=== PATIENT | female | born 1955 | race Caucasian/White ===

== ENCOUNTER 2018-05-24 12:08 | Outpatient (CLI) | payer OTHER | END 2018-05-24 12:09 | disposition home or self-care (01) | LOC: BICMAMMO 12:08 | PROVIDERS: ATTEND Obstetrics & Gynecology | DX: Z12.31 Encounter for screening mammogram for malignant neoplasm of breast (principal) | CPT/HCPCS: 77063; 77067 ==

== ENCOUNTER 2018-05-31 08:55 | Outpatient (CLI) | payer OTHER | END 2018-05-31 08:56 | disposition home or self-care (01) | LOC: BICMAMMO 08:55 | PROVIDERS: ATTEND Obstetrics & Gynecology | DX: R92.2 Inconclusive mammogram (principal) | CPT/HCPCS: G0279 ==

== ENCOUNTER 2020-08-16 10:26 | Outpatient (CLI) | payer MEDICARE ==
--- NOTE | 2020-08-16 11:03 | MMO ---
Left Breast MAMMO [facility] LT[facility]. CLINICAL HISTORY: Patient is 64 years old and is seen for diagnostic exam and lump or thickening in the left breast. The patient has no family history of breast cancer. The patient has no personal history of cancer. VIEWS: The views performed were: left craniocaudal with tomosynthesis; left mediolateral oblique with tomosynthesis; and left mediolateral with tomosynthesis. FILMS COMPARED: The present examination has been compared to prior imaging studies performed at [facility] on 05/18/2019 and 06/12/2020, and at [facility] on 05/31/2018 and 08/16/2020. This study has been interpreted with the assistance of computer-aided detection. MAMMOGRAM FINDINGS: There are scattered fibroglandular densities. There is a round mass measuring 11 millimeters with circumscribed margins seen in the sub-areolar region of the left breast. Palpable finding cyst on ultasound There are no suspicious masses, suspicious calcifications, or new areas of architectural distortion. IMPRESSION: THERE IS NO MAMMOGRAPHIC EVIDENCE OF MALIGNANCY. A ROUTINE FOLLOW-UP MAMMOGRAM IN 1 YEAR IS RECOMMENDED. THE RESULTS OF THIS EXAM WERE SENT TO THE PATIENT. ACR BI-RADS Category 2 - Benign finding MAMMOGRAPHY NOTE: 1. A negative mammogram report should not delay a biopsy if a dominant of clinically suspicious mass is present. 2. Approximately 10% to 15% of breast cancers are not detected by mammography. 3. Adenosis and dense breasts may obscure an underlying neoplasm. Reported by: LILLIANA ROMERO MD Electonically Signed: [id number]
--- NOTE | 2020-08-16 11:28 | ULT ---
LEFT BREAST ULTRASOUND: Date: 08/16/2020 HISTORY: Patient presents with a palpable finding in the 3 o'clock retroareolar region. FINDINGS: There is a 0.7 x 1.1 x 1.1 cm diameter circumscribed benign cyst in the retroareolar region of the le ft breast at 3 o'clock, corresponding to the palpable abnormality. IMPRESSION: BI-RADS Category 2 - Benign findings. Benign left breast cyst at 3 o'clock corresponding to the mammographic and palpable finding. Continued annual follow-up screening mammograms. The next bilateral screening study will be due in Au 2020.
== END 2020-08-16 10:27 | disposition home or self-care (01) ==
LOC: BICMAMMO 10:26
PROVIDERS: ATTEND Obstetrics & Gynecology
DX: N60.02 Solitary cyst of left breast (principal)
CPT/HCPCS: 76642; 77065; G0279

== ENCOUNTER 2022-02-19 09:33 | Outpatient (CLI) | payer MEDICARE ==
[2022-02-19 18:03] LABS: SARS-CoV-2 PCR by NAA Not Detected (NotDetected)
== END 2022-02-19 09:34 | disposition home or self-care (01) ==
LOC: LABBT 09:33
PROVIDERS: ATTEND Neurological Surgery
DX: M43.16 Spondylolisthesis, lumbar region (principal); Z20.822 Contact with and (suspected) exposure to COVID-19
CPT/HCPCS: U0003; U0005

== ENCOUNTER 2022-03-17 09:12 | Outpatient (CLI) | payer MEDICARE ==
[2022-03-17 19:52] LABS: SARS-CoV-2 PCR by NAA Not Detected (NotDetected)
== END 2022-03-17 09:13 | disposition home or self-care (01) ==
LOC: LABBT 09:12
PROVIDERS: ATTEND Ophthalmology Retina Specialist
DX: Z20.822 Contact with and (suspected) exposure to COVID-19 (principal)
CPT/HCPCS: U0003; U0005

== ENCOUNTER 2022-03-20 06:03 | Day surgery (SDC) | payer MEDICARE ==
[~2022-03-20 06:03] MED LIST: EPINEPHrine 0.3 MG in Ophthalmic Irrigation Solution 500 ML IRR SCH
[2022-03-20] MEDS ORDERED: Cyclopentolate 1% Opth Drop 2 ML BOT ONE (06:14)
[2022-03-20] MEDS ORDERED: Phenylephrine 2.5% Ophth Soln 5 ML BOT ONE (06:14)
[2022-03-20] MEDS ORDERED: Propofol 1,000 MG/100 ML VIAL IV ONE (06:22)
[2022-03-20] MEDS ORDERED: PROPOFOL 20 ML ONE (06:24)
[2022-03-20] MEDS ORDERED: Midazolam HCl 2 mg/2 ml Vial ONE (06:57)
[2022-03-20] MEDS ORDERED: fentaNYL Citrate/PF 100 MCG/2 ML SYRINGE ONE (06:59)
[2022-03-20] MEDS ORDERED: Lidocaine 1% PF 5 ML VIAL ONE ×2 (07:07)
[2022-03-20] MEDS ORDERED: Bupivacaine 0.75% 10 ML VIAL ONE (07:07)
[2022-03-20] MEDS ORDERED: Maxitrol 0.1% Opth Oint 3.5 GM TUBE ONE (07:07)
[2022-03-20] MEDS ORDERED: Lidocaine 4% PF 5 ML AMP ONE (07:07)
[2022-03-20] MEDS ORDERED: CEFAZOLIN 1 GM VIAL ONE (07:07)
[2022-03-20] MEDS ORDERED: PROPOFOL 200 MG/20 ML VIAL ONE (07:07)
[2022-03-20] MEDS ORDERED: Triamcinolone 40 MG/ML VIAL ONE (07:07)
== END 2022-03-20 08:10 | disposition home or self-care (01) ==
LOC: SDC 06:03
PROVIDERS: ATTEND Ophthalmology Retina Specialist
PROC: 08T53ZZ Resection of Left Vitreous, Percutaneous Approach (ICD-10-PCS; principal; 2022-03-20)
PROC: 08NF3ZZ Release Left Retina, Percutaneous Approach (ICD-10-PCS; 2022-03-20)
DX: H43.312 Vitreous membranes and strands, left eye (principal); K21.9 Gastro-esophageal reflux disease without esophagitis; Z79.899 Other long term (current) drug therapy; Z98.41 Cataract extraction status, right eye; Z98.42 Cataract extraction status, left eye; Z96.1 Presence of intraocular lens
CPT/HCPCS: J0171; J0690; J2250; J2704; J3301; J3490

== ENCOUNTER 2022-05-02 12:53 | Outpatient (CLI) | payer MEDICARE | END 2022-05-02 12:54 | disposition home or self-care (01) | LOC: BICRAD 12:53 | PROVIDERS: ATTEND Specialist | DX: M54.16 Radiculopathy, lumbar region (principal); M41.9 Scoliosis, unspecified; Z98.890 Other specified postprocedural states | CPT/HCPCS: 72110 ==

== ENCOUNTER 2022-12-04 05:58 | Day surgery (SDC) | payer MEDICARE ==
[2022-12-03 15:53] VITALS: BMI 29.1
[2022-12-04] MEDS ORDERED: Phenylephrine 2.5% Ophth Soln 5 ML BOT ONE (06:17)
[2022-12-04] MEDS ORDERED: Cyclopentolate 1% Opth Drop 2 ML BOT ONE (06:17)
[2022-12-04] MEDS ORDERED: Midazolam HCl 2 mg/2 ml Vial ONE (06:46)
[2022-12-04] MEDS ORDERED: Fentanyl 100 MCG/2 ML VIAL ONE (06:46)
[2022-12-04] MEDS ORDERED: PROPOFOL 200 MG/20 ML VIAL ONE (07:20)
[2022-12-04] MEDS ORDERED: Lidocaine 1% PF 5 ML VIAL ONE (07:20)
[2022-12-04] MEDS ORDERED: Bupivacaine 0.75% 10 ML VIAL ONE (07:20)
[2022-12-04] MEDS ORDERED: CEFAZOLIN 1 GM VIAL ONE (07:20)
[2022-12-04] MEDS ORDERED: Maxitrol 0.1% Opth Oint 3.5 GM TUBE ONE (07:20)
[2022-12-04] MEDS ORDERED: Triamcinolone 40 MG/ML VIAL ONE (07:20)
[2022-12-04] MEDS ORDERED: Lidocaine 4% PF 5 ML AMP ONE (07:20)
== END 2022-12-04 08:29 | disposition home or self-care (01) ==
LOC: SDC 05:58
PROVIDERS: ATTEND Ophthalmology Retina Specialist
PROC: 08T43ZZ Resection of Right Vitreous, Percutaneous Approach (ICD-10-PCS; principal; 2022-12-04)
DX: H43.311 Vitreous membranes and strands, right eye (principal); K21.9 Gastro-esophageal reflux disease without esophagitis; Z79.899 Other long term (current) drug therapy; Z98.41 Cataract extraction status, right eye; Z98.42 Cataract extraction status, left eye; Z96.1 Presence of intraocular lens
CPT/HCPCS: J0171; J0690; J2250; J2704; J3010; J3301; J3490

== ENCOUNTER 2023-01-21 15:04 | Outpatient (CLI) | payer MEDICARE | END 2023-01-21 15:05 | disposition home or self-care (01) | LOC: SCSMRI 15:04 | PROVIDERS: ATTEND Orthopaedic Surgery | DX: M75.101 Unspecified rotator cuff tear or rupture of right shoulder, not specified as traumatic (principal); Z98.890 Other specified postprocedural states ==

== ENCOUNTER 2023-02-27 10:31 | Outpatient (CLI) | payer MEDICARE ==
[2023-02-27 12:50] LABS: #Basophils 0.1 10x3/uL (0.0-0.2); #Eosinphils 0.3 10x3/uL (0.0-0.5); #Monocytes 0.5 10x3/uL (0.0-1.1); #Neutrophils 2.3 10x3/uL (1.5-8.4); %Basophils 0.9 % (0.0-2.0); %Eosinophils 5.8 % (0.0-6.0); %Lymphocytes 41.2 % (18.0-47.0); %Monocytes 8.6 % (0.0-10.0); %Neutrophils 43.3 % (40.0-75.0); Hemoglobin 14.6 g/dL (12.0-15.5); Mean Corpuscular HGB CONC 32.5 g/dL (32.0-36.0); Mean Corpuscular Hemoglobin 31.6 pg (27.0-33.0); Mean Corpuscular Volume 97.2 fl (81.6-98.3); Mean Platelet Volume 9.9 fl (7.4-10.4); Platelet Count 246 10x3/uL (150-450); RBC Distribution Width 13.2 % (11.5-14.5); Red Blood Cell (RBC) Count 4.62 10x6/uL (3.90-5.03); White Blood Cell (WBC) Count 5.4 10x3/uL (3.5-10.5)
[2023-02-27 13:32] LABS: Anion Gap 14 mmol/L (10-20); BUN (Urea Nitrogen) 15 mg/dL (9.8-20.1); Calc. Creatinine Clearance 0 mL/min (70-130); Calcium 9.6 mg/dL (7.8-10.44); Carbon Dioxide 29 mmol/L (23-31); Chloride 104 mmol/L (98-107); Estimated GFR 88; Glucose 89 mg/dL (80-115); Potassium 4.8 mmol/L (3.5-5.1); Sodium 142 mmol/L (136-145)
== END 2023-02-27 10:32 | disposition home or self-care (01) ==
LOC: LABBT 10:31
PROVIDERS: ATTEND Orthopaedic Surgery
DX: Z01.818 Encounter for other preprocedural examination (principal); M75.101 Unspecified rotator cuff tear or rupture of right shoulder, not specified as traumatic
CPT/HCPCS: 80048; 85025; 93005; 93010

== ENCOUNTER 2023-03-05 05:56 | Day surgery (SDC) | payer MEDICARE ==
[2023-03-03 08:09] VITALS: BMI 28.6
[2023-03-05] MEDS ORDERED: fentaNYL PF 100 MCG/2 ML SYRINGE ONE (06:13)
[2023-03-05] MEDS ORDERED: Lidocaine 4% Topical Sol 50 ML BOT ONE (06:33)
[2023-03-05] MEDS ORDERED: Midazolam HCl 2 mg/2 ml Vial ONE (06:45)
[2023-03-05] MEDS ORDERED: CEFAZOLIN 2 GM VIAL ONE (07:06)
[2023-03-05] MEDS ORDERED: Sodium Chloride 0.9% 100 ML ONE (07:06)
[2023-03-05] MEDS ORDERED: PROPOFOL 200 MG/20 ML VIAL ONE (07:32)
[2023-03-05] MEDS ORDERED: Glycopyrrolate 0.2 MG/ML 5 ML SYRINGE ONE (07:32)
[2023-03-05] MEDS ORDERED: PHENYLEPHRINE-NS 100 MCG/ML 10 ML SYRINGE ONE (07:32)
[2023-03-05] MEDS ORDERED: NEOSTIGMINE 3 MG/3 ML SYR 3 MG/3 ML SYRINGE ONE (07:32)
[2023-03-05] MEDS ORDERED: Dexamethasone 20 MG/5 ML VIAL ONE (07:32)
[2023-03-05] MEDS ORDERED: Ondansetron PF 4 MG/2 ML Vial ONE (07:32)
[2023-03-05] MEDS ORDERED: Rocuronium Bromide 10 MG/ML (10ML VIAL) ONE (07:32)
[2023-03-05] MEDS ORDERED: Ketorolac Tromethamine 30 MG/ML VIAL ONE (07:32)
[2023-03-05] MEDS ORDERED: Promethazine HCl 25 MG/ML VIAL IM PRN (07:45)
[2023-03-05] MEDS ORDERED: HYDROcodone/Acetaminophen 10/325 mg Tablet PO PRN ×2 (07:45)
[2023-03-05] MEDS ORDERED: Zolpidem Tartrate 5 MG TAB PO PRN (07:45)
[2023-03-05] MEDS ORDERED: Ondansetron PF 4 MG/2 ML Vial IVP PRN (07:45)
[2023-03-05] MEDS ORDERED: traMADol HCl 50 MG TAB PO PRN ×2 (07:45)
[2023-03-05] MEDS ORDERED: Ropivacaine 0.2% 550 ML 550 ML NERVE BLCK SCH (07:45)
[2023-03-05] MEDS ORDERED: Ropivacaine 0.5% HCl/PF (150 MG/30 ML VIAL) ONE (09:50)
[2023-03-05] MEDS ORDERED: Ketorolac Tromethamine 30 MG/ML VIAL IVP SCH (12:00)
== END 2023-03-05 12:30 | disposition home or self-care (01) ==
LOC: SDC 05:56
PROVIDERS: ATTEND Orthopaedic Surgery
PROC: 0LQ10ZZ Repair Right Shoulder Tendon, Open Approach (ICD-10-PCS; principal; 2023-03-05)
DX: M75.101 Unspecified rotator cuff tear or rupture of right shoulder, not specified as traumatic (principal); M19.90 Unspecified osteoarthritis, unspecified site; E78.00 Pure hypercholesterolemia, unspecified; K21.9 Gastro-esophageal reflux disease without esophagitis; J45.909 Unspecified asthma, uncomplicated; Z79.1 Long term (current) use of non-steroidal anti-inflammatories (NSAID); Z79.899 Other long term (current) drug therapy; Z98.1 Arthrodesis status; Z98.890 Other specified postprocedural states
CPT/HCPCS: 23130; 23412; A4306; C1713; J1100; J1885; J2250; J2405; J2704; J2795; J3490

== ENCOUNTER 2025-10-02 13:56 | Outpatient (CLI) | payer MEDICARE | END 2025-10-02 13:57 | disposition home or self-care (01) | LOC: SCSMRI 13:56 | PROVIDERS: ATTEND Nurse Practitioner Family | DX: M47.22 Other spondylosis with radiculopathy, cervical region (principal); M50.11 Cervical disc disorder with radiculopathy, high cervical region; M50.121 Cervical disc disorder at C4-C5 level with radiculopathy; M50.122 Cervical disc disorder at C5-C6 level with radiculopathy; M50.123 Cervical disc disorder at C6-C7 level with radiculopathy; M50.13 Cervical disc disorder with radiculopathy, cervicothoracic region; M25.78 Osteophyte, vertebrae; M48.02 Spinal stenosis, cervical region; R93.7 Abnormal findings on diagnostic imaging of other parts of musculoskeletal system | CPT/HCPCS: 72141 ==